=== PATIENT | female | born 1960 | race Caucasian/White ===

== ENCOUNTER 2018-12-13 01:44 | Inpatient (IN) ==
[2018-12-12 08:39] LABS: BASO# 0.02 X1000 (0.0-0.2); BASO% 0.3 % (0.0-0.8); EOS# 0.06 X1000 (0.0-0.7); EOS% 0.9 % (0.0-10.0); HEMATOCRIT 45.8 % (37.0-47.0); HEMOGLOBIN 15.4 g/dL (12.0-16.0); IMM GRAN# 0.02 X1000 (0.0-0.04); IMM GRAN% 0.3 % (0.0-0.5); LYMPH# 1.57 X1000 (1.2-3.4); LYMPH% 24.3 % (20.5-51.1); MCH 28.1 PG (27-31); MCHC 33.6 g/dL (33-37); MCV 83.6 FL (81-99); MONO# 0.56 X1000 (0.11-0.59); MONO% 8.7 % (1.7-9.3); MPV 9.5 FL (7.4-10.4); NEUT# 4.22 X1000 (1.4-6.5); NEUT% 65.5 % (42.2-75.2); PLT 388 X1000 (130-400); RBC 5.48 XMIL (4.2-5.4); RDW 23.9 % (11.5-14.5); WBC 6.45 X1000 (4.8-10.8)
[2018-12-12 08:49] LABS: AGAP 12; BUN 6 mg/dL (8-22); CALCIUM 9.2 mg/dL (8.8-10.2); CHLORIDE 94 mmol/L (98-107); COSMO 266; CREATININE 0.7 mg/dL (0.5-0.9); ESTIMATED GFR > 60; GLUCOSE 104 mg/dL (70-104); POTASSIUM 3.4 mmol/L (3.5-5.1); SODIUM 134 mmol/L (136-145); TCO2 28 mmol/L (25-35)
[2018-12-13] MEDS ORDERED: DIPRIVAN 1% ONE (06:41)
[2018-12-13] MEDS ORDERED: NORCURON ONE ×2 (06:42→08:54)
[2018-12-13] MEDS ORDERED: XYLOCAINE-MPF 2% ONE (06:42)
[2018-12-13] MEDS ORDERED: ENTEREG ONE (06:48)
[2018-12-13] MEDS ORDERED: LR 1,000 ML ONE (06:48)
[2018-12-13] MEDS ORDERED: INVANZ 1 GM/NS 1 GM/50 ML IVPB ONE (06:48)
[2018-12-13] MEDS ORDERED: QUELICIN (DOSE) ONE (06:48)
[2018-12-13] MEDS ORDERED: MARCAINE 0.25% ONE (07:15)
[2018-12-13] MEDS ORDERED: EXPAREL 1.3% ONE (07:15)
[2018-12-13] MEDS ORDERED: SUFENTA ONE (08:11)
[2018-12-13 09:14] LABS: URINE SOURCE CATH
[2018-12-13 09:23] LABS: BILIRUBIN URINE NEGATIVE (NEGATIVE); BLOOD URINE NEGATIVE (NEGATIVE); COLOR YELLOW; GLUCOSE URINE NEGATIVE (NEGATIVE); KETONE URINE NEGATIVE (NEGATIVE); LEUKOCYTES URINE NEGATIVE (NEGATIVE); NITRITE URINE NEGATIVE (NEGATIVE); PH URINE 6.5; PROTEIN URINE NEGATIVE (NEGATIVE); TURBIDITY URINE CLEAR (CLEAR); UROBILINOGEN URINE NORMAL (NORMAL)
[2018-12-13 09:25] LABS: UR EPITHELIAL CELLS <10 /HPF (<10); URINE BACTERIA NEGATIVE /HPF; URINE WBC <10 /HPF (<10)
[2018-12-13] MEDS ORDERED: VERSED ONE (10:48)
[2018-12-13] MEDS ORDERED: BRIDION ONE (10:50)
[2018-12-13] MEDS ORDERED: LIDOCAINE SYRINGE ONE (10:52)
[2018-12-13] MEDS: DILAUDID ONE ×4 (11:05→11:34)
[2018-12-13] MEDS ORDERED: ZOFRAN IV PRN (12:36)
[2018-12-13] MEDS: ULTRAM PO PRN (12:50)
[2018-12-13] MEDS: OFIRMEV 1000 MG/ISOTONIC SOLN 1,000 MG/100 ML BOTTLE IV SCH ×2 (14:16→18:35)
[2018-12-13] MEDS: MORPHINE IV PRN ×2 (17:40→21:34)
[2018-12-13] MEDS: LR 1,000 ML IV SCH (17:41)
--- NOTE | 2018-12-13 19:14 | OPERATIVE NOTE ---
PROCEDURE DATE: 12/13/2018 PREOPERATIVE DIAGNOSES: 1. Transverse and left colon mass with high-grade dysplasia. 2. Crohn disease. POSTOPERATIVE DIAGNOSES: 1. Transverse and left colon mass with high-grade dysplasia. 2. Crohn disease. PROCEDURE PERFORMED: Completion total abdominal colectomy with ileorectal anastomosis. VP [employer]CTS AND PLANNING: Dr. Tuttle was present for the creation of anastomosis. He facilitated exposure, identification of anatomy. ESTIMATED BLOOD LOSS: 50 mL. SPECIMENS: Colon. ANESTHESIA: General with a TAP block. INDICATIONS: A 58-year-old female who has had a previous right colectomy for complications associated with Crohn disease many years ago. This was done in open-end fashion. She developed some bleeding, pains and frequency. She had a colonoscopy that showed a coalescing polypoid lesion in the colon remnant. Biopsy showed dysplasia. CT showed no metastatic disease. OPERATIVE FINDINGS: There was an ileotransverse anastomosis. There were some intra-abdominal adhesions. There was no obvious adenopathy noted. No evidence of metastatic disease. There was thickening and neoplastic changes extending from the ileocolonic anastomosis to the level of sigmoid colon, but overall the distal sigmoid rectum was normal. OPERATIVE NOTE: Risks, benefits and alternatives were discussed with patient, and she consented to the procedure. She was seen preoperatively, and surgical site was confirmed. She was taken to the operating room and placed in supine position. General anesthesia was induced without complication. All bony prominences were padded. She was then placed in lithotomy position. Again, bony prominences were padded. Correa catheter was placed. A tap block was performed by Anesthesia. For details, please see dictated operative note. Following this, her abdomen was prepped with chlorhexidine solution and draped. After the time-out, we made a midline incision and carried this down to the fascia. The fascia was incised. The abdomen was entered in a controlled fashion. She had some omental adhesions to the midline that we took down with both electrocautery and sharp dissection protecting the small bowel. Extra-large Jett wound protector was placed. We gained exposure here. We identified the small bowel and the previous anastomosis and eviscerated this. We began mobilizing the left colon and the adhesions medially the small bowel from this area. At middle colic, entered the specimen. We identified this and highly ligated it doubly with 0 Vicryl suture. We then continued our dissection distally. We were able to take the left colon branches highly as well. We preserved the superior rectal branch as well. An 80 mm blue load stapler was used to divide the small bowel proximally. There were some changes consistent with Crohn disease here, but we divided it at an area of normal bowel. There was a tattooed lesion in the distal colon. We divided at an area of the [*]in a well-perfused portion of the colon. We passed the specimen off. We could palpate the changes and our distal transection point was at an area of soft colon at least 7 cm beyond the distal tattoo. We irrigated the abdomen and confirmed hemostasis. Both the proximal portion of small bowel and the rectum were well perfused with pulsatile bleeding noted. We cleaned off the epiploic appendages, and removed the corner from each staple line to ensure there was no twist in the mesentery. A common enterotomy was made with an 80 mm blue load stapler. The common enterotomy was then closed with another fire of the 80 mm blue load stapler, creating a [id number] functional end-to-end anastomosis. We imbricated the corners and placed an offloading suture of 3- 0 Vicryl. There was good perfusion and patent anastomosis. We placed this in the pelvis, covered with omentum after irrigating the abdomen, changing our gloves, and our instruments removed. The wound protector closed the fascia with a running looped PDS suture #1. I irrigated the superficial wound, closed the skin with drew. A gauze Medipore dressing was applied. She tolerated procedure well. There was no complication. She was awakened and transferred to recovery. I spoke with the family. cc: Craig Waldrop MD
[2018-12-13] MEDS: PERIDEX MT SCH (21:26)
[2018-12-13] MEDS: COREG PO SCH (21:26)
[2018-12-14] MEDS: ULTRAM PO PRN ×2 (00:13→06:46)
[2018-12-14] MEDS: OFIRMEV 1000 MG/ISOTONIC SOLN 1,000 MG/100 ML BOTTLE IV SCH ×2 (01:17→06:12)
[2018-12-14] MEDS: LR 1,000 ML IV SCH ×3 (04:06→14:34)
[2018-12-14] MEDS: MORPHINE IV PRN ×5 (06:12→23:51)
[2018-12-14] MEDS: PROTONIX PO SCH (06:12)
[2018-12-14] MEDS: SYNTHROID PO SCH (06:12)
[2018-12-14 06:37] LABS: BASO# 0.01 X1000 (0.0-0.2); BASO% 0.1 % (0.0-0.8); EOS# 0.05 X1000 (0.0-0.7); EOS% 0.5 % (0.0-10.0); HEMATOCRIT 40.4 % (37.0-47.0); IMM GRAN# 0.02 X1000 (0.0-0.04); IMM GRAN% 0.2 % (0.0-0.5); LYMPH# 1.33 X1000 (1.2-3.4); LYMPH% 14.1 % (20.5-51.1); MCH 27.8 PG (27-31); MCHC 32.2 g/dL (33-37); MCV 86.3 FL (81-99); MONO# 0.89 X1000 (0.11-0.59); MONO% 9.4 % (1.7-9.3); MPV 9.4 FL (7.4-10.4); NEUT# 7.16 X1000 (1.4-6.5); NEUT% 75.7 % (42.2-75.2); PLT 339 X1000 (130-400); RBC 4.68 XMIL (4.2-5.4); RDW 23.6 % (11.5-14.5); WBC 9.46 X1000 (4.8-10.8)
[2018-12-14 07:02] LABS: AGAP 7; BUN 4 mg/dL (8-22); CALCIUM 8.7 mg/dL (8.8-10.2); CHLORIDE 100 mmol/L (98-107); COSMO 269; CREATININE 0.7 mg/dL (0.5-0.9); ESTIMATED GFR > 60; GLUCOSE 102 mg/dL (70-104); POTASSIUM 4.1 mmol/L (3.5-5.1); SODIUM 136 mmol/L (136-145); TCO2 29 mmol/L (25-35)
[2018-12-14] MEDS: PERIDEX MT SCH ×2 (08:40→23:01)
[2018-12-14] MEDS: ENTEREG PO SCH ×2 (08:40→23:00)
[2018-12-14] MEDS: PAXIL PO SCH (08:40)
[2018-12-14] MEDS: LOVENOX SUBQ SCH (08:40)
[2018-12-14] MEDS: LIALDA PO SCH (08:40)
[2018-12-14] MEDS: MAG-OX PO SCH (08:40)
--- NOTE | 2018-12-14 08:50 | GENERAL SURGERY PROGRESS NOTE ---
DATE: 12/14/2018 SUBJECTIVE: Pain control is somewhat of an issue, but is controlled with her IV pain medication. No fevers. OBJECTIVE: Vital Signs: Pulse is 58, blood pressure 152/73. Abdomen: Soft, appropriately tender, nondistended. Dressing is clean. LABS: White count is 9, hematocrit is 40, creatinine 0.7, potassium is 4.1. ASSESSMENT AND PLAN: This is a 58-year-old female status post completion of abdominal colectomy in the setting of Crohn with high-grade dysplasia polyp. We will continue to advance her per the ERAS pathway. I have her on Entereg. She is on appropriate home medication of Lovenox starting today, lactated Ringer to 100 magnesium, and morphine 4 mg as needed and [*]. She is also getting Ultram and proton pump inhibitor. We will continue to follow her, encourage her to be out of bed. Her Correa is out. cc: Craig Waldrop MD
[2018-12-14] MEDS: COREG PO SCH ×2 (12:39→23:00)
[2018-12-15] MEDS: LR 1,000 ML IV SCH ×3 (03:58→15:18)
[2018-12-15] MEDS: MORPHINE IV PRN ×5 (04:11→20:45)
[2018-12-15] MEDS: SYNTHROID PO SCH (06:03)
[2018-12-15] MEDS: PROTONIX PO SCH (06:03)
[2018-12-15] MEDS: PAXIL PO SCH (07:59)
[2018-12-15] MEDS: MAG-OX PO SCH (07:59)
[2018-12-15] MEDS: LIALDA PO SCH (07:59)
[2018-12-15] MEDS: ENTEREG PO SCH ×2 (07:59→20:44)
[2018-12-15] MEDS: LOVENOX SUBQ SCH (08:00)
[2018-12-15] MEDS: COREG PO SCH ×2 (08:00→20:44)
[2018-12-15] MEDS: PERIDEX MT SCH ×2 (08:04→20:45)
[2018-12-15] MEDS ORDERED: SALINE LOCK IV FLUID XX ONE (13:35)
--- NOTE | 2018-12-15 19:47 | GENERAL SURGERY PROGRESS NOTE ---
DATE: 12/15/2018 SUBJECTIVE: Doing well. She is passing gas. No fevers. No tachycardia tonight. OBJECTIVE: Dressings in place. Her abdomen is soft, nondistended. No new labs this morning. ASSESSMENT AND PLAN: This is a 58-year-old female status post completion abdominal colectomy with ileorectal anastomosis. She is doing very well. She is on Lovenox and Entereg. Will advance her diet to soft and let her go home tomorrow. cc: Craig Waldrop MD
[2018-12-16] MEDS: ULTRAM PO PRN (00:20)
[2018-12-16] MEDS: MORPHINE IV PRN ×2 (02:10→10:32)
[2018-12-16] MEDS: PROTONIX PO SCH (08:48)
[2018-12-16] MEDS: LIALDA PO SCH (08:52)
[2018-12-16] MEDS: MAG-OX PO SCH (08:52)
[2018-12-16] MEDS: PERIDEX MT SCH (08:52)
[2018-12-16] MEDS: ENTEREG PO SCH (08:52)
[2018-12-16] MEDS: SYNTHROID PO SCH (08:52)
[2018-12-16] MEDS: LOVENOX SUBQ SCH (08:52)
[2018-12-16] MEDS: PAXIL PO SCH (08:53)
[2018-12-16] MEDS: COREG PO SCH (08:53)
--- NOTE | 2018-12-16 22:36 | DISCHARGE SUMMARY ---
ADMISSION DATE: 12/13/2018 DISCHARGE DATE: 12/16/2018 ADMITTING DIAGNOSIS: 1. Transverse left colon mass. 2. Crohn disease. PROCEDURE PERFORMED: Completion total abdominal colectomy with ileorectal anastomosis. HPI: A 58-year-old female who has had longstanding Crohn disease. She has had a previous right colectomy was found to have coalescing polyps with high-grade dysplasia in the remainder of her colon. HOSPITAL COURSE: The patient taken operating room for above procedure on 12/13/2018. Postoperatively she did well. She did have some pain control issues that was controlled with p.r.n. morphine but overall she had return of bowel function on postoperative day 2, was tolerating a diet, her incision was intact, she is voiding without difficulty and her pain is well controlled on oral medication, she is felt safe for discharge. Follow up appointment with me in 1 week for staple removal. Discharge instructions given written and verbal format. DISPOSITION: Home to self-care. DISCHARGE DIET: GI soft. During her stay she was continued on prophylactic Lovenox and PPI as well as appropriate home medication. cc: Craig Waldrop MD
== END 2018-12-16 11:11 | disposition home or self-care (01) | DRG 331 ==
LOC: SURHOLD 01:44 → 4N 09:27
PROVIDERS: ADMIT Surgery; ATTEND Surgery
CPT/HCPCS: 80048; 81001; 85025; 86850; 86900; 86901; 86920; 88307; 88313; 94761; 94799; 97162; A9270; C9290; J0131; J0330; J1170; J1335; J1650; J2250; J2270; J2405; J7120; S0020